=== PATIENT | female | born 1935 | race Caucasian/White ===

== ENCOUNTER → 2016-11-16 | Outpatient (CLI) | payer MEDICARE ==
[~2016-11-16] MED LIST: BETAPACE DPS120 MG PO; CELEBREX100 MG PO; COZAAR DPS50 MG PO; DULCOLAX-DPS5 MG PO; MILK OF MAGNESI10 ML PO; SENOKOT S1 TAB PO; TYLENOL DPS325 MG PO; ULTRAM DPS50 MG PO; XARELTO10 MG PO
== END | disposition home or self-care (01) ==
DX: I72.8 Aneurysm of other specified arteries (principal); N28.89 Other specified disorders of kidney and ureter; R93.429 Abnormal radiologic findings on diagnostic imaging of unspecified kidney

== ENCOUNTER → 2016-12-01 | Outpatient (CLI) | payer MEDICARE | END | disposition home or self-care (01) | LOC: RAD.S 09:25 | DX: Z12.31 Encounter for screening mammogram for malignant neoplasm of breast (principal) ==